=== PATIENT | female | born 1945 | race Caucasian/White ===

== ENCOUNTER 2016-06-12 16:16 | Emergency (ER) | payer OTHER, MEDICARE ==
[~2016-06-12] VITALS: Ht 160 cm; Wt 81.3 kg
[~2016-06-12 16:16] MED LIST: ACCUNEB0.63 MG/3 IH; ADVAIR 250-501 EACH IH; ADVAIR 250/501 DISK IH; ALBUTEROL0.63 MG/3 IH; ALLOPURINOL100 MG PO; AMITRIPTYLINE H75 MG PO; ASPIR-MOX 325325 MG PO; ASPIRIN EC325 M2 PO; ASPIRIN EC325 MG PO; ASPIRIN325 MG PO; AUGMENTIN875 MG PO; Advair HFA 115/21 IH; BACTRIM,SEPT1 TABLET PO; BACTROBAN NASAL1 G1 BOTH NARES; BYSTOLIC10 MG PO; Bystolic PO; CATAPRES0.1 MG PO; CATAPRES0.2 MG PO; CLONIDINE HCL0.1 MG PO; CLONIDINE HCL0.2 MG PO; COATED ASPIRIN325 MG PO; COLCRYS0.6 MG PO; CRESTOR10 MG PO; CYCLOBENZAPRINE10 MG PO; CYMBALTA60 MG PO; Cardizem CD,Cartia X PO; Catapres PO; Cymbalta PO; DOK PLUS TABLE1 EACH PO; DURAGESIC100 MCG TD; DURAGESIC75 MCG PO; DURAGESIC75 MCG TD; Duragesic TD; ECOTRIN325 MG PO; ENDOCET 5-3251 EACH PO; FENTANYL1 EAC3 TD; FEROSUL325 MG PO; FLEXERIL10 MG PO; Feosol PO; Flagyl PO; Flexeril PO; GLIPIZIDE5 M1 PO; GLIPIZIDE5 MG PO; GLUCOPHAGE850 MG PO; IRON SUPPLEMEN325 MG PO; IRON18 MG; IRON240 MG PO; IRON325 M1 PO; ISOSORBIDE DINIT SL; LANTUS 3 M100 UNITS1 SC; LASIX20 MG PO; LASIX40 MG PO; LEVOTHYROXINE50 MCG PO; LISINOPRIL10 MG PO; LISINOPRIL5 MG PO; METOPROLOL SUC100 MG PO; MIRTAZAPINE45 MG PO; Miralax, Glycolax PO; Mycostatin PO; NORCO 5/3251 TABLET PO; NOVOLOG 10100 UNITS/ SC; NOVOLOG MI100 UNIT/M SC; NOVOLOG PE100 UNITS/ SC; OMEPRAZOLE40 M1 PO; OTC ANTACID; OXYCODONE-APAP1 EACH PO; PERCOCET 10/1 TABLET PO; PREDNISONE10 MG PO; PREDNISONE20 MG PO; PRILOSEC40 MG PO; PROAIR HFA8.5 GM IH; PROVENTIL HFA6.7 GM IH; PROVENTIL,2.5 MG/3 M IH; Proventil,Ventolin H IH; REQUIP3 MG PO; ROPINIROLE HCL3 MG PO; ROWASA PR; Requip PO; SENNA-TIME S T1 EACH PO; SEROQUEL XR150 MG PO; SEROQUEL XR50 MG PO; SEROQUEL12.5 MG PO; SINGULAIR10 MG PO; SYNTHROID50 MCG PO; Singulair PO; TOPROL XL50 MG PO; TRAMADOL HCL50 MG PO; TRICOR145 MG PO; ULTRAM50 MG PO; Ultram PO; VITAMIN D-32000 UNI2 PO; VITAMIN D34000 UNIT PO; VITAMIN D400 UNI2 PO; ZOFRAN4 MG PO; ZYLOPRIM100 MG PO; Zithromax PO; predniSONE PO
[2016-06-12 17:13] LABS: CARBON DIOXIDE (BICARBONATE) 26.6 MEQ/L (20-31)
[2016-06-12 17:26] LABS: CHLORIDE 108 mEq/L (99-109); POTASSIUM 4.5 mEq/L (3.7-5.4); SODIUM 145 mEq/L (136-147)
[2016-06-12 17:28] LABS: GLUCOSE 123 mg/dL (70-99)
[2016-06-12 17:29] LABS: ANION GAP 16 MEQ/L (2-14)
[2016-06-12 17:32] LABS: EOSINOPHIL (%) 1.2 % (0-5); EOSINOPHIL COUNT 0.1 K/uL (0-0.3); GFR ESTIMATE (CALCULATED) 43 mL/min/; HEMATOCRIT 37.9 % (36.0-46.0); IMMATURE GRANULOCYTE (%) 0.5 % (0.0-0.7); INSTRUMENT ABS NEUTROPHIL CT 6.2 K/uL; LYMPHOCYTE COUNT 1.1 K/uL (1.0-2.8); MCH 27.6 PG (29.0-34.0); MCHC 31.7 G/DL (30.0-36.0); MCV 87.3 FL (83-99); MEAN PLAT.VOLUME 11.7 uM^3 (9.5-12.4); MONOCYTE (%) 3.7 % (3-12); MONOCYTE COUNT 0.3 K/uL (0-0.8); NEUTROPHIL (%) 80.9 % (45-76); NEUTROPHIL COUNT 6.2 K/uL (1.8-6.4); PLATELET COUNT 230 K/uL (156-360); RBC DIS.WIDTH-CV 16.5 % (11.8-14.6); RBC DIS.WIDTH-SD 52.7 % (39-53); RED BLOOD COUNT 4.34 M/uL (3.80-5.20); UREA NITROGEN (BUN) 52 mg/dL (9-23); WHITE BLOOD COUNT 7.6 K/uL (4.1-10.2)
[2016-06-12 17:35] LABS: TROP-I INTERPRETATION NEGATIVE; TROPONIN-I 0.03 ng/mL (0.0-0.30)
[2016-06-12 19:26] LABS: INFLUENZA A VIRAL ANTIGEN NEGATIVE; INFLUENZA B VIRAL ANTIGEN NEGATIVE
[2016-06-12 20:29] VITALS: BP 154/84
== END 2016-06-12 20:35 | disposition home or self-care (01) ==
LOC: EME 16:16
PROVIDERS: Emergency Medicine
DX: F41.9 Anxiety disorder, unspecified (principal); J45.901 Unspecified asthma with (acute) exacerbation; E03.9 Hypothyroidism, unspecified; E78.5 Hyperlipidemia, unspecified; Z86.73 Personal history of transient ischemic attack (TIA), and cerebral infarction without residual deficits; G47.30 Sleep apnea, unspecified; Z93.2 Ileostomy status; Z79.82 Long term (current) use of aspirin
CPT/HCPCS: 71010; 80048; 82803; 84484; 85025; 87502; 93005; 94640; 99281; 99285; J2060

== ENCOUNTER 2017-07-16 18:10 | Inpatient (IN) | payer OTHER, MEDICARE ==
[~2017-07-16] VITALS: Ht 144.8 cm; Wt 84.6 kg
[~2017-07-16 18:10] MED LIST changes: +ADVAIR 500/501 DISK IH
[2017-07-16 18:53] LABS: BASOPHIL (%) 0.1 % (0-1); EOSINOPHIL (%) 0.4 % (0-5); EOSINOPHIL COUNT 0.1 K/uL (0-0.3); HEMATOCRIT 37.2 % (36.0-46.0); HEMOGLOBIN 11.7 G/DL (11.9-15.5); LYMPHOCYTE (%) 5.5 % (15-42); LYMPHOCYTE COUNT 0.7 K/uL (1.0-2.8); MCH 28.4 PG (29.0-34.0); MCHC 31.5 G/DL (30.0-36.0); MCV 90.3 FL (83-99); MONOCYTE (%) 3.4 % (3-12); MONOCYTE COUNT 0.5 K/uL (0-0.8); NEUTROPHIL (%) 89.6 % (45-76); NEUTROPHIL COUNT 11.9 K/uL (1.8-6.4); PLATELET COUNT 219 K/uL (156-360); RBC DIS.WIDTH-CV 14.3 % (11.8-14.6); RBC DIS.WIDTH-SD 47.1 % (39-53); RED BLOOD COUNT 4.12 M/uL (3.80-5.20); WHITE BLOOD COUNT 13.3 K/uL (4.1-10.2)
[2017-07-16 19:04] LABS: ALBUMIN 4.2 g/dL (3.2-4.8); CHLORIDE 117 mEq/L (99-109); SODIUM 140 mEq/L (136-147)
[2017-07-16 19:06] LABS: GLUCOSE 188 mg/dL (70-99); TOTAL PROTEIN 6.2 g/dL (6.4-8.3)
[2017-07-16 19:08] LABS: TOTAL BILIRUBIN 0.4 mg/dL (0.0-1.0)
[2017-07-16 19:10] LABS: ALKALINE PHOSPHATASE 100 IU/L (3-129); CREATININE 1.7 mg/dL (0.6-1.3); GFR ESTIMATE (CALCULATED) 32 mL/min/
[2017-07-16 19:11] LABS: UREA NITROGEN (BUN) 65 mg/dL (9-23)
[2017-07-16 19:12] LABS: AST (GOT) 20 IU/L (2-34)
[2017-07-16 19:13] LABS: ALT (GPT) 24 IU/L (3-49)
[2017-07-16 19:20] LABS: TROP-I INTERPRETATION NEGATIVE; TROPONIN-I 0.02 ng/mL (0.0-0.30)
[2017-07-16 19:25] LABS: POTASSIUM 6.2 mEq/L (3.7-5.4)
[2017-07-16 19:31] LABS: BASE EXCESS -11.1 mEq/L (-3 to +3); BICARBONATE 14.7 mEq/L (22-26); CARBOXY HGB 1.4 % (0-5); COMMENTS - BLOOD GASES A+C+; DEVICE NC; METHEMOGLOBIN 1.1 % (0-1.5); O2 FLOW 3 L/MIN; PCO2 32 mm Hg (35-45); PO2 127 mm Hg (80-100); SITE LR; TOTAL RESP RATE 20 resp/min; pH 7.27 (7.35-7.45)
[2017-07-16 23:00] VITALS: BP 184/92
[2017-07-16 23:36] LABS: CHLORIDE 116 mEq/L (99-109); POTASSIUM 5.7 mEq/L (3.7-5.4); SODIUM 140 mEq/L (136-147)
[2017-07-16 23:38] LABS: GLUCOSE 275 mg/dL (70-99)
[2017-07-16 23:42] LABS: CREATININE 1.4 mg/dL (0.6-1.3); GFR ESTIMATE (CALCULATED) 40 mL/min/
[2017-07-16 23:43] LABS: UREA NITROGEN (BUN) 57 mg/dL (9-23)
[2017-07-16 23:44] LABS: URIC ACID 5.9 mg/dL (3.1-9.2)
[2017-07-17] VITALS: BP 184/92
[2017-07-17 04:00] VITALS: BP 141/75
[2017-07-17 05:48] LABS: HEMATOCRIT 34.1 % (36.0-46.0); HEMOGLOBIN 10.3 G/DL (11.9-15.5); MCH 27.4 PG (29.0-34.0); MCHC 30.2 G/DL (30.0-36.0); MCV 90.7 FL (83-99); PLATELET COUNT 185 K/uL (156-360); RBC DIS.WIDTH-CV 14.5 % (11.8-14.6); RBC DIS.WIDTH-SD 47.8 % (39-53); RED BLOOD COUNT 3.76 M/uL (3.80-5.20); WHITE BLOOD COUNT 7.3 K/uL (4.1-10.2)
[2017-07-17 06:12] LABS: CHLORIDE 112 MEQ/L (99-109); CREATININE 1.5 MG/DL (0.6-1.3); GFR ESTIMATE (CALCULATED) 36 mL/min/; GLUCOSE 392 mg/dL (70-99); POTASSIUM 5.7 MEQ/L (3.7-5.4); SODIUM 139 MEQ/L (136-147); UREA NITROGEN (BUN) 56 mg/dL (9-23)
[2017-07-17 07:49] VITALS: BP 142/70
[2017-07-17 12:00] VITALS: BP 144/63
[2017-07-17 14:48] LABS: CHLORIDE 109 MEQ/L (99-109); CREATININE 1.4 MG/DL (0.6-1.3); GFR ESTIMATE (CALCULATED) 40 mL/min/; GLUCOSE 266 mg/dL (70-99); POTASSIUM 4.6 MEQ/L (3.7-5.4); SODIUM 139 MEQ/L (136-147); UREA NITROGEN (BUN) 49 mg/dL (9-23)
[2017-07-17 17:04] VITALS: BP 177/76
[2017-07-17 20:00] VITALS: BP 140/72
[2017-07-18] VITALS (7 sets, daily range): BP systolic 129–178; BP diastolic 74–90
[2017-07-18 05:44] LABS: BASOPHIL (%) 0.2 % (0-1); EOSINOPHIL (%) 0 % (0-5); HEMATOCRIT 35.2 % (36.0-46.0); HEMOGLOBIN 10.9 G/DL (11.9-15.5); LYMPHOCYTE (%) 4.2 % (15-42); LYMPHOCYTE COUNT 0.5 K/uL (1.0-2.8); MCH 27.7 PG (29.0-34.0); MCV 89.6 FL (83-99); MONOCYTE COUNT 0.4 K/uL (0-0.8); NEUTROPHIL (%) 91.6 % (45-76); NEUTROPHIL COUNT 10.6 K/uL (1.8-6.4); PLATELET COUNT 191 K/uL (156-360); RBC DIS.WIDTH-CV 14.4 % (11.8-14.6); RBC DIS.WIDTH-SD 46.5 % (39-53); RED BLOOD COUNT 3.93 M/uL (3.80-5.20); WHITE BLOOD COUNT 11.5 K/uL (4.1-10.2)
[2017-07-18 06:59] LABS: CHLORIDE 108 MEQ/L (99-109); CREATININE 1.4 MG/DL (0.6-1.3); GFR ESTIMATE (CALCULATED) 40 mL/min/; GLUCOSE 361 mg/dL (70-99); POTASSIUM 4.4 MEQ/L (3.7-5.4); SODIUM 142 MEQ/L (136-147); UREA NITROGEN (BUN) 54 mg/dL (9-23)
[2017-07-18 09:42] LABS: INTER. NORMALIZED RATIO 1.2
[2017-07-19 03:20] VITALS: BP 148/84
[2017-07-19 08:07] LABS: BASOPHIL (%) 0.1 % (0-1); EOSINOPHIL (%) 0 % (0-5); HEMOGLOBIN 10.1 G/DL (11.9-15.5); IMMATURE GRANULOCYTE (%) 1.6 % (0.0-0.7); LYMPHOCYTE (%) 6.2 % (15-42); LYMPHOCYTE COUNT 0.7 K/uL (1.0-2.8); MCH 27.8 PG (29.0-34.0); MCHC 30.6 G/DL (30.0-36.0); MCV 90.9 FL (83-99); MONOCYTE (%) 3.4 % (3-12); MONOCYTE COUNT 0.4 K/uL (0-0.8); NEUTROPHIL (%) 88.7 % (45-76); NEUTROPHIL COUNT 9.7 K/uL (1.8-6.4); PLATELET COUNT 156 K/uL (156-360); RBC DIS.WIDTH-CV 14.6 % (11.8-14.6); RBC DIS.WIDTH-SD 48.6 % (39-53); RED BLOOD COUNT 3.63 M/uL (3.80-5.20); WHITE BLOOD COUNT 10.9 K/uL (4.1-10.2)
[2017-07-19 08:30] VITALS: BP 184/96
[2017-07-19 08:31] LABS: CHLORIDE 112 MEQ/L (99-109); CREATININE 1.3 MG/DL (0.6-1.3); GFR ESTIMATE (CALCULATED) 43 mL/min/; GLUCOSE 181 mg/dL (70-99); POTASSIUM 4.3 MEQ/L (3.7-5.4); SODIUM 144 MEQ/L (136-147); UREA NITROGEN (BUN) 54 mg/dL (9-23)
[2017-07-19 08:33] LABS: INTER. NORMALIZED RATIO 1.2
[2017-07-19 08:52] LABS: PTT 220 SEC (25-37)
[2017-07-19 11:49] VITALS: BP 171/85
[2017-07-19 17:40] VITALS: BP 147/83
[2017-07-19 19:54] VITALS: BP 154/75
[2017-07-19 23:35] VITALS: BP 151/76
[2017-07-20 04:10] VITALS: BP 150/84
[2017-07-20 05:29] LABS: BASOPHIL (%) 0.1 % (0-1); EOSINOPHIL (%) 0 % (0-5); HEMATOCRIT 28.4 % (36.0-46.0); HEMOGLOBIN 8.9 G/DL (11.9-15.5); IMMATURE GRANULOCYTE (%) 2.2 % (0.0-0.7); LYMPHOCYTE (%) 6.9 % (15-42); LYMPHOCYTE COUNT 0.6 K/uL (1.0-2.8); MCH 28.3 PG (29.0-34.0); MCHC 31.3 G/DL (30.0-36.0); MCV 90.4 FL (83-99); MONOCYTE (%) 3.3 % (3-12); MONOCYTE COUNT 0.3 K/uL (0-0.8); NEUTROPHIL (%) 87.5 % (45-76); NEUTROPHIL COUNT 7.1 K/uL (1.8-6.4); PLATELET COUNT 154 K/uL (156-360); RBC DIS.WIDTH-CV 14.6 % (11.8-14.6); RBC DIS.WIDTH-SD 47.9 % (39-53); RED BLOOD COUNT 3.14 M/uL (3.80-5.20); WHITE BLOOD COUNT 8.1 K/uL (4.1-10.2)
[2017-07-20 05:42] LABS: CHLORIDE 111 MEQ/L (99-109); SODIUM 143 MEQ/L (136-147)
[2017-07-20 05:53] LABS: CREATININE 1.3 MG/DL (0.6-1.3); GFR ESTIMATE (CALCULATED) 43 mL/min/; UREA NITROGEN (BUN) 54 mg/dL (9-23)
[2017-07-20 05:56] LABS: GLUCOSE 280 mg/dL (70-99)
[2017-07-20 06:08] LABS: INTER. NORMALIZED RATIO 5.8
[2017-07-20 08:00] VITALS: BP 177/74
[2017-07-20 12:00] VITALS: BP 156/72
[2017-07-20 16:49] VITALS: BP 158/73
[2017-07-20 19:46] VITALS: BP 157/74; BP 157/75
[2017-07-20 23:46] VITALS: BP 147/65
[2017-07-21] VITALS (8 sets, daily range): BP systolic 89–181; BP diastolic 54–92
[2017-07-21 05:41] LABS: BASOPHIL (%) 0.2 % (0-1); EOSINOPHIL (%) 0.1 % (0-5); HEMATOCRIT 30.9 % (36.0-46.0); HEMOGLOBIN 9.5 G/DL (11.9-15.5); IMMATURE GRANULOCYTE (%) 2.7 % (0.0-0.7); LYMPHOCYTE (%) 18.4 % (15-42); LYMPHOCYTE COUNT 1.7 K/uL (1.0-2.8); MCH 27.8 PG (29.0-34.0); MCHC 30.7 G/DL (30.0-36.0); MCV 90.4 FL (83-99); MONOCYTE (%) 5.8 % (3-12); MONOCYTE COUNT 0.5 K/uL (0-0.8); NEUTROPHIL (%) 72.8 % (45-76); NEUTROPHIL COUNT 6.7 K/uL (1.8-6.4); NRBC (%) 0.2 /100 WBC (0-0); PLATELET COUNT 145 K/uL (156-360); RBC DIS.WIDTH-CV 14.5 % (11.8-14.6); RBC DIS.WIDTH-SD 47.8 % (39-53); RED BLOOD COUNT 3.42 M/uL (3.80-5.20); WHITE BLOOD COUNT 9.2 K/uL (4.1-10.2)
[2017-07-21 06:02] LABS: INTER. NORMALIZED RATIO 3.1
[2017-07-21 06:18] LABS: CHLORIDE 111 MEQ/L (99-109); CREATININE 1.5 MG/DL (0.6-1.3); GFR ESTIMATE (CALCULATED) 36 mL/min/; POTASSIUM 4.2 MEQ/L (3.7-5.4); SODIUM 145 MEQ/L (136-147); UREA NITROGEN (BUN) 56 mg/dL (9-23)
[2017-07-21 08:32] LABS: GLUCOSE 59 mg/dL (70-99)
[2017-07-21 13:53] LABS: Heparin Induced Plt Ab Negative (Negative)
[2017-07-21 17:02] LABS: UFH SRA Result Negative (Negative)
[2017-07-21 19:58] LABS: HEMATOCRIT 26.4 % (36.0-46.0); HEMOGLOBIN 8.3 G/DL (11.9-15.5); MCH 28.4 PG (29.0-34.0); MCHC 31.4 G/DL (30.0-36.0); MCV 90.4 FL (83-99); NRBC (%) 0.4 /100 WBC (0-0); RBC DIS.WIDTH-CV 14.6 % (11.8-14.6); RBC DIS.WIDTH-SD 48.3 % (39-53); RED BLOOD COUNT 2.92 M/uL (3.80-5.20); WHITE BLOOD COUNT 16.6 K/uL (4.1-10.2)
[2017-07-21 19:59] LABS: PLATELET COUNT 212 K/uL (156-360)
[2017-07-21 20:04] LABS: INTER. NORMALIZED RATIO 3.7
[2017-07-21 22:53] LABS: HEMATOCRIT 22.7 % (36.0-46.0); HEMOGLOBIN 7.5 G/DL (11.9-15.5); MCH 29.4 PG (29.0-34.0); NRBC (%) 0.4 /100 WBC (0-0); PLATELET COUNT 180 K/uL (156-360); RBC DIS.WIDTH-CV 14.6 % (11.8-14.6); RBC DIS.WIDTH-SD 47.3 % (39-53); RED BLOOD COUNT 2.55 M/uL (3.80-5.20); WHITE BLOOD COUNT 20.2 K/uL (4.1-10.2)
[2017-07-22] VITALS (8 sets, daily range): BP systolic 101–152; BP diastolic 55–81
[2017-07-22 06:24] LABS: BASOPHIL (%) 0.4 % (0-1); BASOPHIL COUNT 0.1 K/uL (0-0.1); EOSINOPHIL (%) 0.4 % (0-5); EOSINOPHIL COUNT 0.1 K/uL (0-0.3); HEMATOCRIT 33.5 % (36.0-46.0); IMMATURE GRANULOCYTE (%) 3.6 % (0.0-0.7); INTER. NORMALIZED RATIO 2.8; LYMPHOCYTE (%) 17.8 % (15-42); LYMPHOCYTE COUNT 2.9 K/uL (1.0-2.8); MCH 28.7 PG (29.0-34.0); MCHC 32.2 G/DL (30.0-36.0); MCV 89.1 FL (83-99); MONOCYTE (%) 5.5 % (3-12); MONOCYTE COUNT 0.9 K/uL (0-0.8); NEUTROPHIL (%) 72.3 % (45-76); NEUTROPHIL COUNT 11.8 K/uL (1.8-6.4); NRBC (%) 0.2 /100 WBC (0-0); RBC DIS.WIDTH-CV 14.4 % (11.8-14.6); WHITE BLOOD COUNT 16.3 K/uL (4.1-10.2)
[2017-07-22 06:25] LABS: HEMOGLOBIN 10.8 G/DL (11.9-15.5); RED BLOOD COUNT 3.76 M/uL (3.80-5.20)
[2017-07-22 06:44] LABS: CHLORIDE 113 MEQ/L (99-109); CREATININE 1.2 MG/DL (0.6-1.3); GFR ESTIMATE (CALCULATED) 47 mL/min/; POTASSIUM 4.1 MEQ/L (3.7-5.4); SODIUM 144 MEQ/L (136-147); UREA NITROGEN (BUN) 52 mg/dL (9-23)
[2017-07-22 06:46] LABS: GLUCOSE 46 mg/dL (70-99)
[2017-07-22 06:52] LABS: PLAT.SUFFICIENCY DECREASED
[2017-07-22 07:01] LABS: PLATELET COUNT 121 K/uL (156-360)
[2017-07-22 10:53] LABS: HEMATOCRIT 31.1 % (36.0-46.0); HEMOGLOBIN 10.1 G/DL (11.9-15.5); MCH 28.3 PG (29.0-34.0); MCHC 32.5 G/DL (30.0-36.0); MCV 87.1 FL (83-99); NRBC (%) 0.1 /100 WBC (0-0); PLATELET COUNT 113 K/uL (156-360); RBC DIS.WIDTH-CV 14.8 % (11.8-14.6); RBC DIS.WIDTH-SD 46.7 % (39-53); RED BLOOD COUNT 3.57 M/uL (3.80-5.20); WHITE BLOOD COUNT 15.4 K/uL (4.1-10.2)
[2017-07-22 15:05] LABS: HEMATOCRIT 28.8 % (36.0-46.0); HEMOGLOBIN 9.6 G/DL (11.9-15.5); MCH 28.8 PG (29.0-34.0); MCHC 33.3 G/DL (30.0-36.0); MCV 86.5 FL (83-99); NRBC (%) 0.1 /100 WBC (0-0); PLATELET COUNT 115 K/uL (156-360); RBC DIS.WIDTH-CV 14.8 % (11.8-14.6); RBC DIS.WIDTH-SD 46.5 % (39-53); RED BLOOD COUNT 3.33 M/uL (3.80-5.20); WHITE BLOOD COUNT 13.4 K/uL (4.1-10.2)
[2017-07-22 18:55] LABS: HEMOGLOBIN 10.4 G/DL (11.9-15.5); MCH 29.1 PG (29.0-34.0); MCHC 33.5 G/DL (30.0-36.0); MCV 86.8 FL (83-99); PLATELET COUNT 107 K/uL (156-360); RBC DIS.WIDTH-CV 15.2 % (11.8-14.6); RBC DIS.WIDTH-SD 47.6 % (39-53); RED BLOOD COUNT 3.57 M/uL (3.80-5.20)
[2017-07-22 22:41] LABS: HEMOGLOBIN 9.3 G/DL (11.9-15.5); MCH 29.6 PG (29.0-34.0); MCHC 34.4 G/DL (30.0-36.0); NRBC (%) 0.1 /100 WBC (0-0); PLATELET COUNT 116 K/uL (156-360); RBC DIS.WIDTH-CV 15.1 % (11.8-14.6); RBC DIS.WIDTH-SD 46.3 % (39-53); RED BLOOD COUNT 3.14 M/uL (3.80-5.20); WHITE BLOOD COUNT 14.1 K/uL (4.1-10.2)
[2017-07-23 01:29] VITALS: BP 152/86
[2017-07-23 03:20] LABS: HEMATOCRIT 23.9 % (36.0-46.0); HEMOGLOBIN 8.3 G/DL (11.9-15.5); MCH 29.9 PG (29.0-34.0); MCHC 34.7 G/DL (30.0-36.0); PLATELET COUNT 99 K/uL (156-360); RBC DIS.WIDTH-CV 14.8 % (11.8-14.6); RED BLOOD COUNT 2.78 M/uL (3.80-5.20); WHITE BLOOD COUNT 11.4 K/uL (4.1-10.2)
[2017-07-23 05:26] VITALS: BP 160/90
[2017-07-23 06:46] VITALS: BP 146/78
[2017-07-23 06:51] LABS: HEMATOCRIT 26.8 % (36.0-46.0); HEMOGLOBIN 8.7 G/DL (11.9-15.5); MCH 28.6 PG (29.0-34.0); MCHC 32.5 G/DL (30.0-36.0); MCV 88.2 FL (83-99); PLATELET COUNT 116 K/uL (156-360); RBC DIS.WIDTH-CV 15.2 % (11.8-14.6); RBC DIS.WIDTH-SD 48.6 % (39-53); RED BLOOD COUNT 3.04 M/uL (3.80-5.20); WHITE BLOOD COUNT 13.6 K/uL (4.1-10.2)
[2017-07-23 07:15] LABS: CHLORIDE 114 MEQ/L (99-109); GFR ESTIMATE (CALCULATED) 58 mL/min/; GLUCOSE 105 mg/dL (70-99); POTASSIUM 4.3 MEQ/L (3.7-5.4); SODIUM 142 MEQ/L (136-147); UREA NITROGEN (BUN) 39 mg/dL (9-23)
[2017-07-23 07:37] LABS: INTER. NORMALIZED RATIO 2.3
[2017-07-23 11:31] VITALS: BP 149/71
[2017-07-23 13:04] LABS: HEMATOCRIT 29.3 % (36.0-46.0); HEMOGLOBIN 9.4 G/DL (11.9-15.5); MCV 89.1 FL (83-99)
[2017-07-23 19:10] VITALS: BP 159/74
[2017-07-23 19:14] LABS: PTT 30.5 SEC (25-37)
[2017-07-23 19:44] LABS: INTER. NORMALIZED RATIO 2.4
[2017-07-23 21:28] LABS: HEMATOCRIT 27.1 % (36.0-46.0); HEMOGLOBIN 8.7 G/DL (11.9-15.5); MCV 88.6 FL (83-99)
[2017-07-23 23:49] VITALS: BP 140/85
[2017-07-24 03:19] VITALS: BP 138/65; BP 168/65
[2017-07-24 05:30] LABS: HEMATOCRIT 22.8 % (36.0-46.0); HEMOGLOBIN 7.3 G/DL (11.9-15.5); MCV 91.2 FL (83-99)
[2017-07-24 05:35] LABS: INTER. NORMALIZED RATIO 2.4
[2017-07-24 06:19] LABS: HEMOGLOBIN 8.4 G/DL (11.9-15.5); MCV 93.4 FL (83-99)
[2017-07-24 08:00] VITALS: BP 140/67
[2017-07-24 13:45] LABS: HEMATOCRIT 24.8 % (36.0-46.0); MCV 90.8 FL (83-99)
[2017-07-24 21:12] VITALS: BP 144/77
[2017-07-24 21:20] LABS: HEMOGLOBIN 8.4 G/DL (11.9-15.5); MCV 88.7 FL (83-99)
[2017-07-25 00:15] VITALS: BP 150/74
[2017-07-25 05:11] VITALS: BP 149/77
[2017-07-25 08:17] VITALS: BP 129/76
[2017-07-25 08:25] LABS: HEMATOCRIT 25.1 % (36.0-46.0); HEMOGLOBIN 7.9 G/DL (11.9-15.5); MCV 91.9 FL (83-99)
[2017-07-25 08:34] LABS: INTER. NORMALIZED RATIO 1.7
[2017-07-25 12:30] VITALS: BP 142/67
[2017-07-25 18:18] VITALS: BP 135/79
[2017-07-25 19:17] LABS: HEMOGLOBIN 9.3 G/DL (11.9-15.5); MCV 90.1 FL (83-99)
[2017-07-25 20:30] VITALS: BP 136/72
[2017-07-26 00:22] VITALS: BP 138/74
[2017-07-26 01:21] LABS: HEMATOCRIT 22.7 % (36.0-46.0); HEMOGLOBIN 7.4 G/DL (11.9-15.5); MCV 89.7 FL (83-99)
[2017-07-26 04:49] VITALS: BP 140/71
[2017-07-26 05:21] LABS: HEMATOCRIT 24.6 % (36.0-46.0); HEMOGLOBIN 7.7 G/DL (11.9-15.5); MCH 28.8 PG (29.0-34.0); MCHC 31.3 G/DL (30.0-36.0); MCV 92.1 FL (83-99); NRBC (%) 0.3 /100 WBC (0-0); PLATELET COUNT 114 K/uL (156-360); RBC DIS.WIDTH-CV 15.9 % (11.8-14.6); RBC DIS.WIDTH-SD 51.4 % (39-53); RED BLOOD COUNT 2.67 M/uL (3.80-5.20); WHITE BLOOD COUNT 8.8 K/uL (4.1-10.2)
[2017-07-26 05:24] LABS: INTER. NORMALIZED RATIO 1.3
[2017-07-26 05:29] LABS: PTT 20.3 SEC (25-37)
[2017-07-26 08:17] VITALS: BP 178/80
[2017-07-26 09:44] LABS: CHLORIDE 107 MEQ/L (99-109); GFR ESTIMATE (CALCULATED) 58 mL/min/; GLUCOSE 135 mg/dL (70-99); POTASSIUM 3.8 MEQ/L (3.7-5.4); SODIUM 140 MEQ/L (136-147); UREA NITROGEN (BUN) 34 mg/dL (9-23)
[2017-07-26 11:56] VITALS: BP 135/99
[2017-07-26 18:58] LABS: HEMATOCRIT 23.7 % (36.0-46.0); HEMOGLOBIN 7.6 G/DL (11.9-15.5); MCH 29.3 PG (29.0-34.0); MCHC 32.1 G/DL (30.0-36.0); MCV 91.5 FL (83-99); NRBC (%) 0.3 /100 WBC (0-0); PLATELET COUNT 141 K/uL (156-360); RBC DIS.WIDTH-CV 15.9 % (11.8-14.6); RBC DIS.WIDTH-SD 51.4 % (39-53); RED BLOOD COUNT 2.59 M/uL (3.80-5.20); WHITE BLOOD COUNT 11.2 K/uL (4.1-10.2)
[2017-07-26 21:57] VITALS: BP 179/86
[2017-07-27] VITALS (8 sets, daily range): BP systolic 112–1401; BP diastolic 67–89
[2017-07-27 05:24] LABS: HEMATOCRIT 21.4 % (36.0-46.0); HEMOGLOBIN 6.9 G/DL (11.9-15.5); MCH 29.6 PG (29.0-34.0); MCHC 32.2 G/DL (30.0-36.0); MCV 91.8 FL (83-99); NRBC (%) 0.4 /100 WBC (0-0); PLATELET COUNT 135 K/uL (156-360); RBC DIS.WIDTH-SD 51.5 % (39-53); RED BLOOD COUNT 2.33 M/uL (3.80-5.20); WHITE BLOOD COUNT 9.4 K/uL (4.1-10.2)
[2017-07-27 11:48] LABS: HEMATOCRIT 27.9 % (36.0-46.0); HEMOGLOBIN 9.2 G/DL (11.9-15.5); MCV 90.3 FL (83-99)
[2017-07-27 12:23] LABS: CHLORIDE 109 MEQ/L (99-109); CREATININE 1.1 MG/DL (0.6-1.3); GFR ESTIMATE (CALCULATED) 52 mL/min/; GLUCOSE 223 mg/dL (70-99); POTASSIUM 4.6 MEQ/L (3.7-5.4); SODIUM 141 MEQ/L (136-147); UREA NITROGEN (BUN) 30 mg/dL (9-23)
[2017-07-28 00:21] VITALS: BP 142/76
[2017-07-28 05:04] VITALS: BP 138/84
[2017-07-28 05:55] LABS: HEMATOCRIT 29.2 % (36.0-46.0); HEMOGLOBIN 9.5 G/DL (11.9-15.5); MCH 28.7 PG (29.0-34.0); MCHC 32.5 G/DL (30.0-36.0); MCV 88.2 FL (83-99); NRBC (%) 0.4 /100 WBC (0-0); RBC DIS.WIDTH-CV 16.8 % (11.8-14.6); RBC DIS.WIDTH-SD 52.3 % (39-53); WHITE BLOOD COUNT 11.5 K/uL (4.1-10.2)
[2017-07-28 06:07] LABS: PLATELET COUNT 178 K/uL (156-360); RED BLOOD COUNT 3.31 M/uL (3.80-5.20)
[2017-07-28 07:26] VITALS: BP 126/94
[2017-07-28 10:10] LABS: CHLORIDE 108 MEQ/L (99-109); GFR ESTIMATE (CALCULATED) 58 mL/min/; POTASSIUM 3.9 MEQ/L (3.7-5.4); SODIUM 142 MEQ/L (136-147); UREA NITROGEN (BUN) 31 mg/dL (9-23)
[2017-07-28 10:14] LABS: GLUCOSE 62 mg/dL (70-99)
[2017-07-28 11:41] VITALS: BP 111/74
[2017-07-28 17:08] VITALS: BP 117/84
[2017-07-28 20:33] VITALS: BP 155/79
[2017-07-29 02:35] VITALS: BP 142/74
[2017-07-29 05:23] LABS: BASOPHIL (%) 0.2 % (0-1); EOSINOPHIL (%) 1.1 % (0-5); EOSINOPHIL COUNT 0.1 K/uL (0-0.3); HEMATOCRIT 23.2 % (36.0-46.0); IMMATURE GRANULOCYTE (%) 0.9 % (0.0-0.7); LYMPHOCYTE (%) 17.7 % (15-42); LYMPHOCYTE COUNT 0.9 K/uL (1.0-2.8); MCH 29.5 PG (29.0-34.0); MCHC 32.3 G/DL (30.0-36.0); MCV 91.3 FL (83-99); MONOCYTE (%) 5.1 % (3-12); MONOCYTE COUNT 0.3 K/uL (0-0.8); PLATELET COUNT 139 K/uL (156-360); RBC DIS.WIDTH-CV 16.2 % (11.8-14.6); RBC DIS.WIDTH-SD 52.5 % (39-53); WHITE BLOOD COUNT 5.3 K/uL (4.1-10.2)
[2017-07-29 05:25] LABS: HEMOGLOBIN 7.5 G/DL (11.9-15.5); RED BLOOD COUNT 2.54 M/uL (3.80-5.20)
[2017-07-29 05:38] LABS: CHLORIDE 107 MEQ/L (99-109); CREATININE 0.9 MG/DL (0.6-1.3); GFR ESTIMATE (CALCULATED) > 59 mL/min/; POTASSIUM 4.3 MEQ/L (3.7-5.4); SODIUM 141 MEQ/L (136-147); UREA NITROGEN (BUN) 28 mg/dL (9-23)
[2017-07-29 05:42] LABS: GLUCOSE 165 mg/dL (70-99)
[2017-07-29 06:14] LABS: HEMATOCRIT 27.5 % (36.0-46.0); HEMOGLOBIN 8.7 G/DL (11.9-15.5); MCV 91.1 FL (83-99)
[2017-07-29 07:45] VITALS: BP 154/84
[2017-07-29] MEDS ORDERED: NIFEDIPINE20 MG PO (12:07)
[2017-07-29] MEDS ORDERED: TRAMADOL HCL50 MG PO (12:09)
[2017-07-29] MEDS ORDERED: VANCOMYCIN HCL125 MG PO (12:13)
[2017-07-29] MEDS ORDERED: NOVOLOG PE100 UNITS/ SC (12:17)
[2017-07-29] MEDS ORDERED: LANTUS 3 M100 UNITS1 SC (12:18)
[2017-07-29 12:26] VITALS: BP 134/78
[2017-07-29] MEDS ORDERED: PREDNISONE5 MG PO (12:34)
[2017-07-29 18:13] LABS: HEMATOCRIT 29.9 % (36.0-46.0); HEMOGLOBIN 9.6 G/DL (11.9-15.5); MCV 89.8 FL (83-99)
== END 2017-07-29 18:37 | disposition home or self-care (01) | DRG 167 ==
LOC: EME 18:10 → EDOF 21:22 → 4EAST 21:22 → ENRESERV 21:37 → 4EAST 22:56 → ENRESERV 07-19 12:48 → CANRESERV 07-19 13:22 → ENRESERV 07-19 13:22 → 4EAST 07-26 11:25 → ENRESERV 07-29 09:43 → CANRESERV 07-29 09:52 → 4EAST 07-29 18:37
PROVIDERS: Emergency Medicine; Hospitalist; Internal Medicine; Student in an Organized Health Care Education/Training Program; Surgery; Thoracic Surgery (Cardiothoracic Vascular Surgery)
PROC: 30233N1 Transfusion of Nonautologous Red Blood Cells into Peripheral Vein, Percutaneous Approach (ICD-10-PCS; principal; 2017-07-22)
PROC: B5191ZZ Fluoroscopy of Inferior Vena Cava using Low Osmolar Contrast (ICD-10-PCS; 2017-07-26)
PROC: 06H03DZ Insertion of Intraluminal Device into Inferior Vena Cava, Percutaneous Approach (ICD-10-PCS; 2017-07-26)
DX: J96.01 Acute respiratory failure with hypoxia (principal); J20.9 Acute bronchitis, unspecified; J44.0 Chronic obstructive pulmonary disease with (acute) lower respiratory infection; J44.1 Chronic obstructive pulmonary disease with (acute) exacerbation; J45.901 Unspecified asthma with (acute) exacerbation; I82.441 Acute embolism and thrombosis of right tibial vein; I82.4Z1 Acute embolism and thrombosis of unspecified deep veins of right distal lower extremity; A04.71 Enterocolitis due to Clostridium difficile, recurrent; N17.9 Acute kidney failure, unspecified; K56.7 Ileus, unspecified; D68.32 Hemorrhagic disorder due to extrinsic circulating anticoagulants; T45.515A Adverse effect of anticoagulants, initial encounter; S30.1XXA Contusion of abdominal wall, initial encounter; R00.0 Tachycardia, unspecified; D62 Acute posthemorrhagic anemia; E87.5 Hyperkalemia; E87.2 Acidosis; E11.65 Type 2 diabetes mellitus with hyperglycemia; E11.22 Type 2 diabetes mellitus with diabetic chronic kidney disease; E11.649 Type 2 diabetes mellitus with hypoglycemia without coma; E86.0 Dehydration; I12.9 Hypertensive chronic kidney disease with stage 1 through stage 4 chronic kidney disease, or unspecified chronic kidney disease; N18.3 Chronic kidney disease, stage 3 (moderate); I95.9 Hypotension, unspecified; B37.3 Candidiasis of vulva and vagina; E78.5 Hyperlipidemia, unspecified; K59.09 Other constipation; M19.90 Unspecified osteoarthritis, unspecified site; F41.1 Generalized anxiety disorder; F32.9 Major depressive disorder, single episode, unspecified; M79.7 Fibromyalgia; G25.81 Restless legs syndrome; E03.9 Hypothyroidism, unspecified; E66.9 Obesity, unspecified; Z68.39 Body mass index [BMI] 39.0-39.9, adult; G47.33 Obstructive sleep apnea (adult) (pediatric); G89.29 Other chronic pain; K21.9 Gastro-esophageal reflux disease without esophagitis; M10.9 Gout, unspecified; M81.0 Age-related osteoporosis without current pathological fracture; F41.9 Anxiety disorder, unspecified; Z86.73 Personal history of transient ischemic attack (TIA), and cerebral infarction without residual deficits; Z90.49 Acquired absence of other specified parts of digestive tract; Z90.710 Acquired absence of both cervix and uterus; Z96.653 Presence of artificial knee joint, bilateral; Z96.611 Presence of right artificial shoulder joint; Z96.612 Presence of left artificial shoulder joint; Z79.4 Long term (current) use of insulin
CPT/HCPCS: 36415; 36600; 71045; 71250; 74176; 78582; 80048; 80048 91; 80053; 80061; 81003; 82436; 82803; 82948; 83036; 83605; 83880; 84133; 84300; 84484; 84550; 85014; 85018; 85025; 85027; 85379; 85610; 85730; 86022 90; 86850; 86900; 86901; 86920; 87040; 87070; 87081; 87177; 87205; 87329; 87493; 87506; 87641; 93005; 93970; 94640; 94640 76; 94799; 99202; 99281; 99285; A9540; A9567; C1769; J0295; J0360; J0456; J0610; J0690; J1170; J1644; J1650; J1815; J1940; J2405; J2930; J3010; J7030; J7040; J7042; J7050; J7512; P9016; S0030

== ENCOUNTER 2017-08-18 16:54 | Emergency (ER) | payer OTHER, MEDICARE ==
[~2017-08-18] VITALS: Ht 144.8 cm; Wt 79.5 kg
[~2017-08-18 16:54] MED LIST changes: +NIFEDIPINE20 MG PO; +PREDNISONE5 MG PO; +VANCOMYCIN HCL125 MG PO
[2017-08-18 17:45] LABS: HEMATOCRIT 32.1 % (36.0-46.0); HEMOGLOBIN 10.1 G/DL (11.9-15.5); MCH 28.1 PG (29.0-34.0); MCHC 31.5 G/DL (30.0-36.0); NRBC (%) 0.3 /100 WBC (0-0); RBC DIS.WIDTH-CV 15.7 % (11.8-14.6); RBC DIS.WIDTH-SD 50.1 % (39-53); WHITE BLOOD COUNT 9.3 K/uL (4.1-10.2)
[2017-08-18 17:46] LABS: MCV 89.2 FL (83-99); PLATELET COUNT 452 K/uL (156-360)
[2017-08-18 17:56] LABS: SODIUM 145 mEq/L (136-147)
[2017-08-18 18:02] LABS: GFR ESTIMATE (CALCULATED) 58 mL/min/
[2017-08-18 18:03] LABS: UREA NITROGEN (BUN) 43 mg/dL (9-23)
[2017-08-18 18:18] LABS: CHLORIDE 108 mEq/L (99-109)
[2017-08-18 18:21] LABS: GLUCOSE 73 mg/dL (70-99); POTASSIUM 4.1 mEq/L (3.7-5.4)
[2017-08-18 19:57] VITALS: BP 133/81
== END 2017-08-18 20:11 | disposition home or self-care (01) ==
LOC: EME 16:54
PROVIDERS: Emergency Medicine
DX: J45.909 Unspecified asthma, uncomplicated (principal); R06.00 Dyspnea, unspecified; E78.5 Hyperlipidemia, unspecified; N18.9 Chronic kidney disease, unspecified; Z99.81 Dependence on supplemental oxygen; K21.9 Gastro-esophageal reflux disease without esophagitis; G47.30 Sleep apnea, unspecified; Z86.73 Personal history of transient ischemic attack (TIA), and cerebral infarction without residual deficits; Z88.8 Allergy status to other drugs, medicaments and biological substances
CPT/HCPCS: 71045; 80048; 81003; 82948; 85027; 94640; 99281; 99285; J3475